=== PATIENT | male | born 1985 | race Caucasian/White ===

== ENCOUNTER 2019-01-24 21:12 | Emergency (ER) | payer OTHER ==
[~2019-01-24] VITALS: Ht 193 cm; Wt 172.4 kg
[~2019-01-24 21:12] MED LIST: AMOCLA875 PO; AMOX500 PO; AZIT250 PO; BETA.05TO TOP; Bactrim Ds Tab1 EACH PO; Bactroban22 GM TOP; CEPH500 PO; CLAR500 PO; CLIN300 PO; CODACE30 PO; CRUTCH4 USE; CRUTCH4 XX; CYCL10 PO; Cyclobenzaprine5 MG PO; DIPH50; FLUO10 PO; GABA300 PO; HYDACE5 PO; HYDGUAL120 PO; HYDR1TAB94 PO; IBUP800 PO; LIDO2L TOP; Naprosyn375 MG PO; Naprosyn500 MG PO; OXYACE5T PO; PENVK500 PO; PERM5TC TOP; PRED10 PO; PRED20 PO; PROM25 PO; Penicillin V P500 MG PO; Percocet 5-3251 EACH PO; Prednisone20 MG PO; RXCODACESY PO; RXHYDACE PO; RXPROM25 PO; RXTRAM50 PO; SUBOXONE 2 MG-1 EACH SL; SULI150 PO; SULTRIDS PO; TRAM50 PO; TRIA80TC TOP; Ultram50 MG PO; Veetids 500500 MG PO
[2019-01-24 21:49] LABS: BASOPHILS ABSOLUTE AUTO 0.04 K/mm3 (0.00-0.23); BASOPHILS PERCENT AUTO 0 % (0-2); EOSINOPHILS ABSOLUTE AUTO 0.41 K/mm3 (0.00-0.68); EOSINOPHILS PERCENT AUTO 4 % (0-6); Hemoglobin 15.2 g/dL (13.5-17.5); IMMATURE GRAN ABSOLUTE AUTO 0.03 K/mm3 (0.00-0.10); IMMATURE GRAN PERCENT AUTO 0 % (0-1); LYMPHOCYTES ABSOLUTE AUTO 2.48 K/mm3 (0.84-5.20); LYMPHOCYTES PERCENT AUTO 24 % (21-46); MONOCYTES ABSOLUTE AUTO 0.55 K/mm3 (0.16-1.47); MONOCYTES PERCENT AUTO 5 % (4-13); Mean Corpuscular HGB 30.8 pg (26.0-34.0); Mean Corpuscular HGB Conc 33.8 g/dL (31.5-36.5); Mean Corpuscular Volume 91 fL (80-100); Mean Platelet Volume 9.9 fL (9.1-12.4); NEUTROPHILS PERCENT AUTO 66 % (41-73); Platelet Count 263 K/mm3 (150-400); RDW Coefficient Variation 12.9 % (11.7-14.2); RDW Standard Deviation 41.9 fL (35.1-46.3); Red Blood Cell Count 4.94 M/mm3 (4.30-5.90); White Blood Cell Count 10.41 K/mm3 (4.00-11.30)
[2019-01-24 22:07] LABS: Anion Gap 5 mmol/L (6-16); Blood Urea Nitrogen 20 mg/dL (8-24); Bun/Creatinine Ratio 23.7 (12.0-20.0); CO2, Blood 30 mmol/L (21-32); Calcium, Blood 9.5 mg/dL (8.5-10.1); Chloride, Blood 105 mmol/L (98-108); Creatinine, Blood 0.84 mg/dL (0.60-1.20); Glomerular Filtration Rate >60 (60-); Glucose, Blood 93 mg/dL (70-99); Potassium, Blood 3.7 mmol/L (3.5-5.5); Sodium, Blood 140 mmol/L (136-145)
[2019-01-25] MEDS ORDERED: Bactrim Ds Tab1 EACH PO (01:05)
[2019-01-25] MEDS ORDERED: CEPH500 PO (01:05)
== END 2019-01-25 01:37 | disposition home or self-care (01) ==
LOC: ER 21:12
PROVIDERS: Emergency Medicine
DX: I87.2 Venous insufficiency (chronic) (peripheral) (principal); L03.116 Cellulitis of left lower limb; Z88.8 Allergy status to other drugs, medicaments and biological substances; Z88.5 Allergy status to narcotic agent; Z79.899 Other long term (current) drug therapy; Z87.891 Personal history of nicotine dependence
CPT/HCPCS: 36415; 80048; 85025; 99283

== ENCOUNTER → 2019-04-20 | Outpatient (CLI) | payer OTHER | END | disposition home or self-care (01) | LOC: LAB SHORT 16:44 → LAB EV 16:44 | DX: L03.211 Cellulitis of face (principal) | CPT/HCPCS: 87070; 87075; 87205 ==

== ENCOUNTER 2020-06-01 00:43 | Emergency (ER) | payer OTHER ==
[~2020-06-01] VITALS: Ht 190.5 cm; Wt 154.2 kg
[2020-06-01 01:14] LABS: Source, Urine Voided
[2020-06-01 01:18] LABS: Bilirubin, Urine Neg (Neg); Blood, Urine Neg (Neg); Glucose Qualitative, Urine Neg (Neg); Ketones, Urine 1+ (Neg); Leukocyte Esterase, Urine 1+ (Neg); Nitrite, Urine Neg (Neg); Protein, Urine 2+ (Neg); Urobilinogen, Urine 1+ (Normal)
[2020-06-01 01:24] LABS: Appearance, Urine Clear (Clear); Color, Urine Yellow (P-Yellow)
[2020-06-01 01:27] LABS: Bacteria Not Seen /hpf; Mucus Light (0-Heavy); Red Blood Cells, Urine Not Seen /hpf (0-2); Squamous Epithelial Cells Not Seen /hpf (Few); White Blood Cells, Urine 0-2 /hpf (0-5)
[2020-06-01] MEDS ORDERED: CYCL10 PO (01:44)
[2020-06-01] MEDS ORDERED: IBU600 MG PO (01:44)
[2020-06-01] MEDS ORDERED: LIDO700A20 TOP (01:44)
== END 2020-06-01 02:00 | disposition home or self-care (01) ==
LOC: ER 00:43
PROVIDERS: Emergency Medicine
DX: M54.6 Pain in thoracic spine (principal); F17.210 Nicotine dependence, cigarettes, uncomplicated; Z88.5 Allergy status to narcotic agent; Z79.899 Other long term (current) drug therapy
CPT/HCPCS: 71046; 81001; 96372; 99283-25; A9270; J1885

== ENCOUNTER 2020-06-04 00:54 | Emergency (ER) | payer OTHER ==
[~2020-06-04] VITALS: Ht 190.5 cm; Wt 149.7 kg
[~2020-06-04 00:54] MED LIST changes: +IBU600 MG PO; +LIDO700A20 TOP
[2020-06-04 01:49] LABS: BASOPHILS ABSOLUTE AUTO 0.02 K/mm3 (0.00-0.23); BASOPHILS PERCENT AUTO 0 % (0-2); EOSINOPHILS PERCENT AUTO 0 % (0-6); Hematocrit 43.4 % (37.0-53.0); Hemoglobin 14.5 g/dL (13.5-17.5); IMMATURE GRAN ABSOLUTE AUTO 0.08 K/mm3 (0.00-0.10); IMMATURE GRAN PERCENT AUTO 0 % (0-1); LYMPHOCYTES ABSOLUTE AUTO 0.82 K/mm3 (0.84-5.20); LYMPHOCYTES PERCENT AUTO 5 % (21-46); MONOCYTES ABSOLUTE AUTO 1.69 K/mm3 (0.16-1.47); MONOCYTES PERCENT AUTO 9 % (4-13); Mean Corpuscular HGB 30.8 pg (26.0-34.0); Mean Corpuscular HGB Conc 33.4 g/dL (31.5-36.5); Mean Corpuscular Volume 92 fL (80-100); Mean Platelet Volume 9.9 fL (9.1-12.4); NEUTROPHILS ABSOLUTE AUTO 15.43 K/mm3 (1.96-9.15); NEUTROPHILS PERCENT AUTO 86 % (41-73); Platelet Count 246 K/mm3 (150-400); RDW Standard Deviation 44.5 fL (35.1-46.3); Red Blood Cell Count 4.71 M/mm3 (4.30-5.90); White Blood Cell Count 18.04 K/mm3 (4.00-11.30)
[2020-06-04 02:13] LABS: Alanine Aminotransfer (ALT/SGP 13 U/L (12-78); Albumin/Globulin Ratio 0.7 (0.8-1.8); Alk Phos 59 U/L (50-136); Anion Gap 7 mmol/L (6-16); Aspartate Aminotrans (AST/SGOT 4 U/L (12-37); Bilirubin, Total 0.7 mg/dL (0.1-1.0); Blood Urea Nitrogen 12 mg/dL (8-24); Bun/Creatinine Ratio 19.3 (12.0-20.0); CO2, Blood 26 mmol/L (21-32); Calcium, Blood 9.2 mg/dL (8.5-10.1); Chloride, Blood 102 mmol/L (98-108); Creatinine, Blood 0.62 mg/dL (0.60-1.20); Globulin, Blood 4.4 g/dL (2.2-4.0); Glomerular Filtration Rate >60 (60-); Glucose, Blood 110 mg/dL (70-99); Potassium, Blood 3.9 mmol/L (3.5-5.5); Sodium, Blood 135 mmol/L (136-145); Total Protein, Blood 7.4 g/dL (6.4-8.2)
[2020-06-04 02:15] LABS: Source, Urine Voided
[2020-06-04 02:17] LABS: C-Reactive Protein, High Sens. >190.000 mg/L (0.000-3.000)
[2020-06-04 02:20] LABS: Bilirubin, Urine Neg (Neg); Blood, Urine Neg (Neg); Glucose Qualitative, Urine Neg (Neg); Ketones, Urine 3+ (Neg); Leukocyte Esterase, Urine Neg (Neg); Nitrite, Urine Neg (Neg); Protein, Urine 2+ (Neg); Specific Gravity, Urine 1.015 (1.003-1.022); Urobilinogen, Urine NORM (Normal)
[2020-06-04 02:37] LABS: U Amphetamine Screen Not Detected; U Barbituate Screen Not Detected; U Benzodiazapine Screen DETECTED; U Cannabinoids Screen DETECTED; U Cocaine Screen Not Detected; U Methadone Screen Not Detected; U Methamphetamine Screen Not Detected; U Opiates Screen Not Detected; U Phencyclidine Screen Not Detected
[2020-06-04 02:38] LABS: U Buprenorphine Screen DETECTED; U Oxycodone Screen Not Detected; U Propoxyphene Screen Not Detected
[2020-06-04 02:40] LABS: Amorphous Mod (0-Heavy); Appearance, Urine Hazy (Clear); Bacteria Rare /hpf; Color, Urine Yellow (P-Yellow); Mucus Mod (0-Heavy); Red Blood Cells, Urine Not Seen /hpf (0-2); Squamous Epithelial Cells Rare /hpf (Few)
== END 2020-06-04 14:13 | disposition short-term general hospital (02) ==
LOC: MRI 00:54 → ER 00:54
PROVIDERS: Emergency Medicine
DX: M54.5 Low back pain (principal); R33.9 Retention of urine, unspecified; Z88.5 Allergy status to narcotic agent; Z79.899 Other long term (current) drug therapy
CPT/HCPCS: 51702; 51798; 72131; 74177; 80053; 81001; 85025; 85651; 86141; 96374; 96375; 99285-25; A9270; J1170; J1885; J2405; J3010; J3360; Q9967

== ENCOUNTER 2020-07-05 08:46 | Day surgery (SDC) | payer OTHER ==
[2020-07-05] MEDS ORDERED: SUBOXONE 8 MG-1 EACH SL (11:49)
[2020-07-05] MEDS ORDERED: BUPR150ER PO (11:50)
[2020-07-05] MEDS ORDERED: CYCL10 PO (11:51)
[2020-07-05] MEDS ORDERED: Cymbalta20 MG PO (11:52)
[2020-07-05] MEDS ORDERED: GABA300 PO (11:52)
[2020-07-05] MEDS ORDERED: IBUP600 PO (11:53)
[2020-07-05] MEDS ORDERED: PANT40 PO (11:53)
== END 2020-07-05 11:32 | disposition home or self-care (01) ==
LOC: ATC 08:46
DX: G06.1 Intraspinal abscess and granuloma (principal); B95.61 Methicillin susceptible Staphylococcus aureus infection as the cause of diseases classified elsewhere; J90 Pleural effusion, not elsewhere classified; N31.9 Neuromuscular dysfunction of bladder, unspecified; K59.2 Neurogenic bowel, not elsewhere classified; G82.22 Paraplegia, incomplete; E66.9 Obesity, unspecified; Z68.36 Body mass index [BMI] 36.0-36.9, adult
CPT/HCPCS: 96365; J0696

== ENCOUNTER 2020-07-06 00:45 | Day surgery (SDC) | payer OTHER ==
[~2020-07-06 00:45] MED LIST changes: +BUPR150ER PO; +Cymbalta20 MG PO; +IBUP600 PO; +PANT40 PO; +SUBOXONE 8 MG-1 EACH SL
[2020-07-07] MEDS ORDERED: ONDA4ODT MM (09:40)
== END 2020-07-06 11:26 | disposition home or self-care (01) ==
LOC: ATC 00:45
DX: G06.1 Intraspinal abscess and granuloma (principal); B95.61 Methicillin susceptible Staphylococcus aureus infection as the cause of diseases classified elsewhere; E66.9 Obesity, unspecified; Z68.36 Body mass index [BMI] 36.0-36.9, adult; G82.22 Paraplegia, incomplete; J90 Pleural effusion, not elsewhere classified; N31.9 Neuromuscular dysfunction of bladder, unspecified; K59.2 Neurogenic bowel, not elsewhere classified
CPT/HCPCS: 96365; J0696

== ENCOUNTER 2020-07-07 00:22 | Day surgery (SDC) | payer OTHER ==
[2020-07-07] MEDS ORDERED: ONDA4ODT MM (09:40)
== END 2020-07-07 10:03 | disposition home or self-care (01) ==
LOC: ATC 00:22
DX: G06.2 Extradural and subdural abscess, unspecified (principal); B95.61 Methicillin susceptible Staphylococcus aureus infection as the cause of diseases classified elsewhere; E66.9 Obesity, unspecified; N31.9 Neuromuscular dysfunction of bladder, unspecified; K59.2 Neurogenic bowel, not elsewhere classified; F41.9 Anxiety disorder, unspecified; F32.9 Major depressive disorder, single episode, unspecified; F11.90 Opioid use, unspecified, uncomplicated; Z68.34 Body mass index [BMI] 34.0-34.9, adult; Z72.0 Tobacco use
CPT/HCPCS: 96365; J0696

== ENCOUNTER 2020-07-08 00:09 | Day surgery (SDC) | payer OTHER ==
[~2020-07-08 00:09] MED LIST changes: +ONDA4ODT MM
== END 2020-07-08 22:39 | disposition home or self-care (01) ==
LOC: ATC 00:09
DX: G06.2 Extradural and subdural abscess, unspecified (principal)

== ENCOUNTER 2021-07-27 15:01 | Emergency (ER) | payer OTHER ==
[~2021-07-27] VITALS: Ht 193 cm; Wt 163.3 kg
== END 2021-07-27 16:46 | disposition home or self-care (01) ==
LOC: ER 15:01
DX: S89.91XA Unspecified injury of right lower leg, initial encounter (principal); W07.XXXA Fall from chair, initial encounter; Z88.5 Allergy status to narcotic agent; Z79.899 Other long term (current) drug therapy; F17.210 Nicotine dependence, cigarettes, uncomplicated
CPT/HCPCS: 29505; 73564; 96372; 99283-25; J1885

== ENCOUNTER 2023-02-18 08:55 | Day surgery (SDC) | payer MEDICARE, OTHER ==
[~2023-02-18] VITALS: Ht 193 cm; Wt 142.7 kg
[2023-02-18] MEDS ORDERED: PROZAC40 MG PO (09:12)
--- NOTE | 2023-02-18 11:08 | NUR ---
02/18/23 1108 Tawnya Devine 3ML OF EPI (1MG/ML) USED TO SOAK PLEDGETS FOR USE AT [facility] BY DR HENSON.
--- NOTE | 2023-02-18 12:15 | NUR ---
02/18/23 1215 Anny Villanueva AT 1205 PT TAKEN TO THE RESTROOM VIA WC AT PT'S REQUEST. PT VOIDED. PT NOW BACK IN RECLINER WITH LEGS ELEVATED, WARM BLANKETS PROVIDED. VSS. PT TOLERATED PO FLUIDS WELL AND DENIED NAUSEA. PT STATES PAIN IS 1/10 UNDER TONGUE. PT DROWSY AT THIS TIME.
[2023-02-18 12:16] VITALS: BP 129/73
== END 2023-02-18 12:25 | disposition home or self-care (01) ==
LOC: ORSCSDS 08:55
PROVIDERS: Otolaryngology
PROC: 0CCG0ZZ Extirpation of Matter from Right Submaxillary Gland, Open Approach (ICD-10-PCS; principal; 2023-02-18 10:15)
DX: K11.20 Sialoadenitis, unspecified (principal); F17.210 Nicotine dependence, cigarettes, uncomplicated; F32.A Depression, unspecified; Z68.38 Body mass index [BMI] 38.0-38.9, adult; Z79.899 Other long term (current) drug therapy
CPT/HCPCS: A9270; J0171; J1100; J2250; J2405; J2704; J2710; J3010; J7120